=== PATIENT | male | born 1985 | race Caucasian/White ===

== ENCOUNTER 2021-09-23 10:40 | Observation (INO) | payer SELFPAY ==
[2021-09-23 10:52] VITALS: BP 128/87; PULSE 87; RESP 18; TEMP 36.3; O2SAT 98
--- NOTE | 2021-09-23 12:30 | DI.CT_ITS ---
Exam(s) CT ABDOMEN PELVIS W EXAM: CT ABDOMEN PELVIS W CLINICAL HISTORY: LLQ pain, diarrhea. TECHNIQUE: Imaging Protocol: Axial computed tomography images with coronal and sagittal reformatted images were created and reviewed CONTRAST MATERIAL: Intravenous: Omnipaque 100cc Oral: None COMPARISON: No exams were available for comparison FINDINGS: VISUALIZED LUNG BASES: Mild increased markings. No pleural effusions.. ABDOMEN: There is a small amount of ascites in the dependent aspect of pelvis. No ascites in the upper abdome n. GI: There is a distal small bowel obstruction pattern with proximal mid small bowel loops dilated up to 3.5 cm diameter. No pneumatosis or perforation and the colon is not collapsed. The most distal s mall bowel loops are collapsed at the terminal ileum level. No obvious mass in the region of the tra nsition point in the right lower quadrant. No intussusception. Colon is not collapsed LIVER: There are no focal hepatic lesions evident . GALLBLADDER/BILIARY: No obvious gallbladder pathology. CBD is not dilated. PANCREAS: No evidence of pancreatic mass nor dilatation of the pancreatic duct. SPLEEN: Spleen is not enlarged. No obvious intrasplenic lesions. Splenic and portal veins are paten t. ADRENALS: There are no significant adrenal masses. KIDNEYS:No cysts evident. No solid renal masses. No calculi nor hydronephrosis.. ABDOMINAL AORTA: Abdominal aorta is not enlarged. LYMPH NODES:There is no retroperitoneal nor paraaortic adenopathy. ABDOMINAL WALL: No evidence of significant anterior abdominal wall nor inguinal hernia. PELVIS: GI: No evidence of appendicitis.No evidence of sigmoid diverticulitis. LYMPH NODES: There is no intrapelvic nor inguinal adenopathy. REPRODUCTIVE: Prostate and seminal vesicles unremarkable. URINARY BLADDER: No calculi nor obvious masses evident OSSEOUS: No significant osseous lesions. IMPRESSION: 1. There is a distal small bowel obstruction pattern, possibly related to adhesions. The colon is no t collapsed at this time. There is a small amount of ascites in the dependent aspect of the pelvis. Surgical consultation is recommended 2. No evidence of appendicitis. No diverticulitis. RADIATION DOSE DELIVERED: 1,072.84mGy.cm Total DLP DATA REPOSITORY: All CT scans at this facility are submitted to the National Radiology Data Registry (NRDR) Dose Index Registry (DIR) with the [employer] (ACR). RADIATION OPTIMIZATION: All CT scans at this facility use at least one of these dose optimization te chniques: automated exposure control; mA and/or kV adjustment per patient size (includes targeted exa ms where dose is matched to clinical indication); or iterative reconstruction.
[2021-09-23] MEDS: MORPHine 10 MG/ML VIAL 4 MG IVP (12:52)
[2021-09-23] MEDS: Normal Saline 1,000 ML 1000 ML IV (12:52)
[2021-09-23] MEDS: Ondansetron 4 MG/2 ML VIAL IVP (12:52)
[2021-09-23 12:56] LABS: Abs Immature Grans 0.08 10^3/uL (0.0-0.06); Absolute Basophil Count 0.05 10^3/uL (0.0-0.2); Absolute Eosinophil Count 0.11 10^3/uL (0.0-0.7); Absolute Lymphocyte Count 1.25 10^3/uL (1.2-3.4); Absolute Monocyte Count 1.12 10^3/uL (0.1-0.8); Basophils % 0.5; Eosinophils % 1.1; HCT 48.9 % (40.0-50.0); HGB 16.4 g/dL (13.5-17.5); Immature Grans % 0.8; Lymphocytes % 12.5; MCH 28.2 pg (27.0-33.0); MCHC 33.5 % (32.0-36.0); MPV 9.5 fL (8.0-11.0); Monocytes % 11.2; Neutrophils % 73.9; Nucleated RBC 0 %; Platelet Count 247 10^3/uL (130-400); RBC 5.82 10^6/uL (4.36-5.78); RDW 13.2 % (11.8-14.1); RDW-SD 40.6 fL; WBC 10.01 10^3/uL (4.4-10.8)
[2021-09-23 13:10] LABS: ALT 74 U/L (16-63); AST 36 U/L (15-37); Alkaline Phosphatase 94 U/L (46-116); Anion Gap 8.8 mmol/L (3-11); BUN 20 mg/dL (7-18); Bilirubin, Total 0.8 mg/dL (0.2-1.0); CO2 26.2 mmol/L (21.0-32.0); CREATININE 1.2 mg/dL (0.70-1.30); Calcium 8.9 mg/dL (8.5-10.1); Chloride 101 mmol/L (98-107); Glucose 107 mg/dL (74-106); Lipase 20 U/L (73-393); Magnesium 2.2 mg/dL (1.8-2.4); Potassium 3.8 mmol/L (3.5-5.1); Sodium 136 mmol/L (136-145); Total Protein 8.3 g/dL (6.4-8.2)
[2021-09-23] MEDS: Omnipaque 350 MG/ML 100 ML BTL IJ (13:40)
[2021-09-23] MEDS: Normal Saline Flush 10 ML SYR IVP ×2 (13:42→16:58)
--- NOTE | 2021-09-23 14:19 | ED.GENADUL_ITS ---
Discharge Plan Disposition Patient Disposition: [facility] INPATIENT Condition: Fair Discharge Details Clinical Impression: Ileus Admit Date/Time: 09/23/21 14:52 Admit Provider: Afshan Quick Attending Provider: Afshan Quick Primary Care Provider: None,None ED Provider: Diego Waite Discharge Data Discharge Date/Time-TO BE ENTERED AT DEPARTURE: 09/23/21 15:52 Medical Decision Making Patient presenting to the emergency department for chief complaint of abdominal pain and diarrhea for the past 3 days. Thursday evening patient had dinner and started having some belly pain and diarrhea. Others in the home had some slight nausea and diarrhea that is all resolved but his pain has continued and worsened. Patient states watery diarrhea with no blood or mucus noted. Patient denies fever chills or other symptoms. Physical exam shows diffuse abdominal tenderness with hyperactive bowel sounds otherwise unremarkable exam. Plan on doing stool specimen if able to otherwise screening labs and the imaging. Will give patient IV hydration pending results. Review of labs shows nondiagnostic CBC with no evident of leukocytosis or left shift, slightly elevated BUN and ALT but no transaminase noted, lipase is normal. Radiologist report possible partial small bowel obstruction. Requested general surgery consultation. Spoke to Dr. Quick general surgery. After discussion feel like patient more has ileus than small bowel obstruction but plan for observation admission. Patient does state some improvement after hydration pain meds and nausea meds. Imaging Data Radiologic Study: Imaging: CT Scan Radiologist's impression: IMPRESSION: 1. There is a distal small bowel obstruction pattern, possibly related to adhesions. The colon is not collapsed at this time. There is a small amount of ascites in the dependent aspect of the pelvis. Surgical consultation is recommended 2. No evidence of appendicitis. No diverticulitis HPI General Mode of arrival: ambulatory . Date/Time Provider Initiated Documentation: 09/23/21 10:53 . Limitations to Documentation: no limitations . Information obtained by: patient, family and RN notes reviewed . History of Present Illness 36 year old M presents to the emergency department with the chief complaint of Abdominal pain, diarrhea, described as moderate, with intensity rated at 8. Quality is described as aching and sharp, and is localized to the abdomen. Patient reports no radiation. Patient started experiencing this day(s) (3) and it has been constant. improves with No relieving factors improve symptom(s), Eating worsens symptoms . Patient notes no other symptoms.. Patient did receive the following treatments prior to arrival, none Related Data Home Medications Medication Instructions Recorded Confirmed ondansetron HCl 4 mg tablet 4 mg PO Q6H PRN #6 tab 09/24/21 Previous Rx's Medication Instructions Recorded ondansetron HCl 4 mg tablet 4 mg PO Q6H PRN #6 tab 09/24/21 Allergies Allergy/AdvReac Type Severity Reaction Status Date / Time No Known Allergies Allergy Unverified 09/23/21 15:46 General Stated Complaint: Abd Prob JIE: 3 Review of Systems Constitutional Constitutional: Denies chills, Denies fever(s) and Reports poor appetite Cardiovascular Cardiovascular: Denies chest pain and Denies dyspnea Respiratory Respiratory: Denies cough and Denies dyspnea Gastrointestinal Gastrointestinal: Reports as per HPI, Reports abdominal pain, Denies melena, Denies hematochezia, Denies change in bowel habits, Denies constipation, Reports excessive flatus, Reports early satiety, Reports diarrhea, Denies nausea and Denies vomiting Genitourinary Genitourinary: Denies hematuria, Denies difficulty urinating, Denies urinary hesitancy, Denies urinary incontinence and Denies urinary urgency Integumentary/Breasts Skin/Breast: Denies rash [facility] Social History Smoking/Tobacco Use Status: Never Smoking risk assessment performed?: Yes Alcohol Intake: never Substance use type: does not use Do you feel safe at home: Yes Do you feel safe in your relationship?: Yes Exam Const General: cooperative Orientation: alert, awake and oriented x3 Resp Effort & Inspection: normal respiratory effort and able to speak in complete sentences Auscultation: clear to auscultation bilaterally Cardio Rate: regular rate Rhythm: regular rhythm Heart Sounds: S1 normal and S2 normal GI Inspection: normal to inspection Palpation: soft, no hepatosplenomegaly, not firm, no guarding, no masses, no pulsatile masses, not rigid, no splenomegaly and tender (Diffuse tenderness with slightly more in left upper quadrant) Auscultation: hyperactive bowel sounds Back/Spine/Pelvis Back: no CVA tenderness Neuro General: patient alert, patient awake, patient oriented x3, gait normal and moves all extremities Course Vital Signs Vital signs: Vital Signs Temperature 36.3 C L 09/23/21 10:52 Pulse 87 09/23/21 10:52 Respiratory Rate 18 09/23/21 10:52 Blood Pressure 128/87 09/23/21 10:52 Pulse Oximetry 98 09/23/21 10:52 Temperature 36.3 C L 09/23/21 10:52 Temperature Source Tympanic 09/23/21 10:52 Pulse 87 09/23/21 10:52 Respiratory Rate 18 09/23/21 10:52 Respiratory Effort Non-Labored 09/23/21 12:58 Blood Pressure 128/87 09/23/21 10:52 Blood Pressure Position Sitting 09/23/21 10:52 Pulse Oximetry 98 09/23/21 10:52 Oxygen Delivery Method Room Air 09/23/21 10:52 Oxygen Flow Rate 0 09/23/21 10:52 Pain Level 8 09/23/21 12:58 Lab/Test Results Lab/Test Results: Laboratory Tests Range/Units 09/23/21 09/23/21 12:44 12:44 WBC (4.4-10.8) 10^3/uL 10.01 RBC (4.36-5.78) 10^6/uL 5.82 H Hgb (13.5-17.5) g/dL 16.4 Hct (40.0-50.0) % 48.9 MCV (80-95) fL 84.0 MCH (27.0-33.0) pg 28.2 MCHC (32.0-36.0) % 33.5 RDW (11.8-14.1) % 13.2 Plt Count (130-400) 10^3/uL 247 MPV (8.0-11.0) fL 9.5 Immature Gran % 0.8 Neutrophils % 73.9 Lymphocytes % 12.5 Monocytes % 11.2 Eosinophils % 1.1 Basophils % 0.5 Nucleated RBC % % 0 Absolute Neutrophils (1.2-6.7) 10^3/uL 7.40 H Absolute Lymphocytes (1.2-3.4) 10^3/uL 1.25 Absolute Monocytes (0.1-0.8) 10^3/uL 1.12 H Absolute Eosinophils (0.0-0.7) 10^3/uL 0.11 Absolute Basophils (0.0-0.2) 10^3/uL 0.05 Sodium (136-145) mmol/L 136 Potassium (3.5-5.1) mmol/L 3.8 Chloride (98-107) mmol/L 101 Carbon Dioxide (21.0-32.0) mmol/L 26.2 Anion Gap (3-11) mmol/L 8.8 BUN (7-18) mg/dL 20 H Creatinine (0.70-1.30) mg/dL 1.2 Estimated GFR/1.73 m2 (mL/min/1.73m2) >= 60.00 Glucose (74-106) mg/dL 107 H Calcium (8.5-10.1) mg/dL 8.9 Magnesium (1.8-2.4) mg/dL 2.2 Total Bilirubin (0.2-1.0) mg/dL 0.8 AST (15-37) U/L 36 ALT (16-63) U/L 74 H Alkaline Phosphatase (46-116) U/L 94 Total Protein (6.4-8.2) g/dL 8.3 H Albumin (3.4-5.0) g/dL 4.0 Lipase (73-393) U/L 20
--- NOTE | 2021-09-23 15:22 | W.PM.HP.N ---
Date of service: 09/23/21 Time of Service: 15:25 Assessment and Plan Assessment and plan (1) Ileus: Status: Acute Assessment and plan: Patient with abdominal pain, increased flatus and diarrhea x [address] scan suggested Ileus vs. SBO. Patient will be admitted for observation for pain control (toradol and Morphine ordered), IV fluids and bowel rest. Strongly encouraged ambulation and activity OOB as tolerated. Pulmonary toilet NPO, ice chips only GI prophylaxis History of Present Illness Narrative: 36 y/o male presented to the ER with complaints of abdominal pain, increased flatus and diarrhea x 3 days. He states that this pain is persistent, however does improve with passing flatus. Denies bloody or black tarry stools. He reports a family history of Chrons disease. Denies ever having a Colonoscopy. He does not take any medications regularly. He denies any use of cigarettes, tobacco, ETOH, marijuana, other recreational or illegal drugs. He state the only surgery he has ever had was an excision of a pilonidal cyst. PFSH All Active Problems Ileus (Acute) Social History Smoking/Tobacco Use Status: Never Smoking risk assessment performed?: Yes Alcohol Intake: never Substance use type: does not use Do you feel safe at home: Yes Do you feel safe in your relationship?: Yes Meds Allergies and Home Medications Allergies Allergy/AdvReac Type Severity Reaction Status Date / Time No Known Allergies Allergy Unverified 09/23/21 15:46 Home Medications Medication Instructions Recorded Confirmed Type Unknown [No Known Home Meds] 09/23/21 09/23/21 History Exam Const General: healthy appearing, comfortable and in distress mild Orientation: alert and oriented x3 Resp Effort & Inspection: normal respiratory effort, no audible wheezes and no cough GI Inspection: normal to inspection Palpation: soft, no guarding and tender Auscultation: hyperactive bowel sounds Results Labs Result diagrams: 09/23/21 12:44 09/23/21 12:44 Labs: Laboratory Results - last 24 hr 09/23/21 09/23/21 12:44 12:44 WBC 10.01 RBC 5.82 H Hgb 16.4 Hct 48.9 MCV 84.0 MCH 28.2 MCHC 33.5 RDW 13.2 Plt Count 247 MPV 9.5 Immature Gran % 0.8 Neutrophils % 73.9 Lymphocytes % 12.5 Monocytes % 11.2 Eosinophils % 1.1 Basophils % 0.5 Nucleated RBC % 0 Absolute Neutrophils 7.40 H Absolute Lymphocytes 1.25 Absolute Monocytes 1.12 H Absolute Eosinophils 0.11 Absolute Basophils 0.05 Sodium 136 Potassium 3.8 Chloride 101 Carbon Dioxide 26.2 Anion Gap 8.8 BUN 20 H Creatinine 1.2 Estimated GFR/1.73 m2 >= 60.00 Glucose 107 H Calcium 8.9 Magnesium 2.2 Total Bilirubin 0.8 AST 36 ALT 74 H Alkaline Phosphatase 94 Total Protein 8.3 H Albumin 4.0 Lipase 20 Last Vital Signs Temp 36.3 C L 09/23/21 10:52 Pulse 87 09/23/21 10:52 Resp 18 09/23/21 10:52 BP 128/87 09/23/21 10:52 Pulse Ox 98 09/23/21 10:52
[2021-09-23 15:30] LABS: Source Nasal/Nares
[2021-09-23 15:50] VITALS: BP 113/69; PULSE 79; TEMP 36.8; O2SAT 97
[2021-09-23] MEDS: Lactated Ringers 1,000 ML 125 ML IV ×2 (16:10→23:48)
[2021-09-23 16:11] VITALS: BP 124/89; PULSE 85; RESP 18; TEMP 36.9; O2SAT 95
[2021-09-23 16:12] LABS: Bilirubin Negative (Negative); Blood Moderate (Negative); Clarity Clear (Clear); Glucose Negative (Negative); Ketones Negative (Negative); Leukocyte Esterase Negative (Negative); Nitrite Negative (Negative); Specific Gravity 1.025 (1.005-1.025); Urobilinogen 0.2 EU/dL (Up TO 0.2)
[2021-09-23 16:22] LABS: COVID-19 PCR Negative (Negative)
[2021-09-23 16:28] LABS: Bacteria Negative HPF (Negative); Crystals Negative HPF (Negative); Epithelial Cells Many HPF (Negative); Mucus Negative (Negative); WBC Negative HPF (0-5)
[2021-09-23 16:29] LABS: C & S Indicated? No
[2021-09-23] MEDS: Pantoprazole 40 MG VIAL IVP (16:58)
[2021-09-23 23:36] VITALS: BP 125/75; PULSE 85; RESP 18; TEMP 36.7; O2SAT 97
[2021-09-24] MEDS: Lactated Ringers 1,000 ML 125 ML IV ×2 (06:25→15:07)
[2021-09-24 07:15] VITALS: BP 98/50; PULSE 60; RESP 16; TEMP 36.5; O2SAT 93
--- NOTE | 2021-09-24 08:23 | PGE_ITS ---
Date of Service Date of service: 09/24/21 Time of Service: 08:24 Assessment and Plan Assessment and plan (1) Ileus: Status: Acute Assessment and plan: Patient's abdominal pain has improved. (+) BS, (+) BM liquid BM late last night and he continues to pass flatus No nausea or vomiting He has been independent with ambualtion and activity OOB Will progress to clear liquid diet this morning. -pt tolerated clears at lunch -no pain -he was able to move bowels Most likely this is gastroenteritis. He will be discharged to home Rx for Zofran for nausea push fluids and brat diet for the next 1 to 2 days follow-up with PCP Patient understood all and discharged in stable satisfaction to home Exam Narrative Exam Narrative: Patient reports his pain is significantly improved this morning. He has been tolerating the ice chips. He had a liquid BM late last night and has continued to pass flatus. Denies any fevers, chills or night sweats. Resp Effort & Inspection: normal respiratory effort, no audible wheezes and no cough GI Inspection: normal to inspection Palpation: soft, no guarding and nontender Objective Last Vital Signs Temp 36.5 C 09/24/21 07:15 Pulse 60 09/24/21 07:15 Resp 16 09/24/21 07:15 BP 98/50 L 09/24/21 07:15 Pulse Ox 93 09/24/21 07:15 Laboratory Results - last 24 hr 09/23/21 09/23/21 09/23/21 12:44 12:44 15:08 WBC 10.01 RBC 5.82 H Hgb 16.4 Hct 48.9 MCV 84.0 MCH 28.2 MCHC 33.5 RDW 13.2 Plt Count 247 MPV 9.5 Immature Gran % 0.8 Neutrophils % 73.9 Lymphocytes % 12.5 Monocytes % 11.2 Eosinophils % 1.1 Basophils % 0.5 Nucleated RBC % 0 Absolute Neutrophils 7.40 H Absolute Lymphocytes 1.25 Absolute Monocytes 1.12 H Absolute Eosinophils 0.11 Absolute Basophils 0.05 Sodium 136 Potassium 3.8 Chloride 101 Carbon Dioxide 26.2 Anion Gap 8.8 BUN 20 H Creatinine 1.2 Estimated GFR/1.73 m2 >= 60.00 Glucose 107 H Calcium 8.9 Magnesium 2.2 Total Bilirubin 0.8 AST 36 ALT 74 H Alkaline Phosphatase 94 Total Protein 8.3 H Albumin 4.0 Lipase 20 Urine Color Urine Clarity Urine pH Ur Specific [place] Urine Protein Urine Ketones Urine Blood Urine Nitrite Urine Bilirubin Urine Urobilinogen Ur Leukocyte Esterase Urine RBC Urine WBC Ur Epithelial Cells Urine Crystals Urine Bacteria Urine Mucus Ur Culture Indicated? Urine Glucose COVID-19 Source Nasal/Nares SARS-CoV-2 (PCR) Negative 09/23/21 15:36 WBC RBC Hgb Hct MCV MCH MCHC RDW Plt Count MPV Immature Gran % Neutrophils % Lymphocytes % Monocytes % Eosinophils % Basophils % Nucleated RBC % Absolute Neutrophils Absolute Lymphocytes Absolute Monocytes Absolute Eosinophils Absolute Basophils Sodium Potassium Chloride Carbon Dioxide Anion Gap BUN Creatinine Estimated GFR/1.73 m2 Glucose Calcium Magnesium Total Bilirubin AST ALT Alkaline Phosphatase Total Protein Albumin Lipase Urine Color Yellow Urine Clarity Clear Urine pH 6.0 Ur Specific [place] 1.025 Urine Protein Negative Urine Ketones Negative Urine Blood Moderate H Urine Nitrite Negative Urine Bilirubin Negative Urine Urobilinogen 0.2 Ur Leukocyte Esterase Negative Urine RBC 3-5 H Urine WBC Negative Ur Epithelial Cells Many Urine Crystals Negative Urine Bacteria Negative Urine Mucus Negative Ur Culture Indicated? No Urine Glucose Negative COVID-19 Source SARS-CoV-2 (PCR)
--- NOTE | 2021-09-24 09:27 | DI.RAD_ITS ---
Exam(s) XR ABDOMEN FLAT UPRIGHT EXAM: 2D digital imaging was performed. CLINICAL HISTORY: Follow up on ileus. COMPARISON: CT CT ABDOMEN PELVIS W from 09/23/2021 TECHNIQUE: Supine and upright views of the abdomen was performed. Three images were obtained. FINDINGS: LUNG BASES: Clear. BOWEL GAS PATTERN: The bowel gas pattern is significantly improved compared to the prior examination with a few mildly dilated loops of small bowel in the central abdomen. The colon is of normal calibe r. FREE AIR: None. CALCIFICATIONS: No radiopaque calcifications. OSSEOUS STRUCTURES: Normal for age. OTHER FINDINGS: None. IMPRESSION: Improved appearance of the bowel. There are a few persistent dilated loops of small bowel in the rupal tral abdomen. DATA REPOSITORY: RADIATION DOSE DELIVERED:
--- NOTE | 2021-09-24 15:14 | W.PM.DS.N ---
Date of service: 09/24/21 Time of Service: 15:14 DS: Diagnosis Discharge Diagnosis (1) Ileus: Status: Acute Discharge Plan Disposition Patient Disposition: HOME Condition: Fair Discharge Details Reason For Visit: viral gastroenteritis Admit Date/Time: 09/23/21 14:52 Admit Provider: Afshan Quick Attending Provider: Afshan Quick Primary Care Provider: None,None Hospital Course Hospital Course: see addendum Home Meds and New Rx's Prescriptions: No Action No Known Home Meds 0RF Discharge Instructions Instructions: Diet for Stomach Ulcers and Gastritis (GEN) Additional Instructions: -BRAT/bland diet for 48hrs. -push fluids -zofran for nausea -rest for the next 48hrs -tylenol for fever/muscle aches as needed -F/u PCP -return to ER if continued vomiting/increase in abdominal pain/fever >101 Activity:: see above Equipment/Supplies:: No Equipment Needed Diet:: see above Discharge Orders Discharge Orders: Discharge Order (Routine); Ordered 09/24/21 Ordered By: Aida Goyal DS: Summary Time Spent with Patient providing and/or coordinating discharge services: Less than 30 minutes Status at Discharge Functional status at discharge: independent ambulation Overall status at discharge: patient is progressing back to baseline Mental Status: mental status grossly normal Speech and Movement: speech and movement normal Mood: congruent mood Affect: normal affect Exam Psych Mental Status: mental status grossly normal Speech and Movement: speech and movement normal Mood: congruent mood Affect: normal affect DS: Data Vitals/I&O Vitals and I&O: Vital Signs Temperature 36.5 C 09/24/21 07:15 Temperature Source Tympanic 09/24/21 07:15 Pulse 60 09/24/21 07:15 Pulse Rhythm Regular 09/24/21 09:10 Respiratory Rate 16 09/24/21 07:15 Respiratory Effort Non-Labored 09/24/21 09:10 Respiratory Depth Normal 09/24/21 09:10 Respiratory Pattern Normal 09/24/21 09:10 Blood Pressure 98/50 L 09/24/21 07:15 Blood Pressure Position Sitting 09/23/21 10:52 Pulse Oximetry 93 09/24/21 07:15 Oxygen Delivery Method Room Air 09/24/21 07:15 Oxygen Flow Rate 0 09/24/21 07:15 Pain Level 0 09/24/21 07:15 Comment 09/24/21 07:15 Intake & Output 09/23/21 09/24/21 09/24/21 23:59 11:59 23:59 Intake Total 195.167 / 1954.167 827.083 / 2307.083 1480 / 2307.083 Output Total 300 / 300 Balance 1654.167 / 1654.167 827.083 / 2307.083 1480 / 2307.083 Weight 81.6 kg Intake: IV 1954.167 / 1954.167 827.083 / 3346.363 2535 / 1827.083 Oral 480 / 480 Output: Stool 300 / 300 Other: Comment voiding independently Stool Size Moderate Small Stool Characteristics Soft Soft Soft Liquid Formed Formed Brown Bloody Data Completed and Pending Labs on day of discharge: Labs from last 24 hours 09/23/21 09/23/21 09/23/21 19:45 19:45 15:36 Urine Color Yellow Urine Clarity Clear Urine pH 6.0 Ur Specific [place] 1.025 Urine Protein Negative Urine Ketones Negative Urine Blood Moderate H Urine Nitrite Negative Urine Bilirubin Negative Urine Urobilinogen 0.2 Ur Leukocyte Esterase Negative Urine RBC 3-5 H Urine WBC Negative Ur Epithelial Cells Many Urine Crystals Negative Urine Bacteria Negative Urine Mucus Negative Ur Culture Indicated? No Urine Glucose Negative Stool Description Pending Stool Campylobacter PCR Pending Stool Salmonella PCR Pending Stool Shigella PCR Pending Stool Ova & Parasites Pending COVID-19 Source SARS-CoV-2 (PCR) Shiga Toxin (PCR) Pending 09/23/21 15:08 Urine Color Urine Clarity Urine pH Ur Specific [place] Urine Protein Urine Ketones Urine Blood Urine Nitrite Urine Bilirubin Urine Urobilinogen Ur Leukocyte Esterase Urine RBC Urine WBC Ur Epithelial Cells Urine Crystals Urine Bacteria Urine Mucus Ur Culture Indicated? Urine Glucose Stool Description Stool Campylobacter PCR Stool Salmonella PCR Stool Shigella PCR Stool Ova & Parasites COVID-19 Source Nasal/Nares SARS-CoV-2 (PCR) Negative Shiga Toxin (PCR) PFSH All Active Problems Ileus (Acute) Social History Smoking/Tobacco Use Status: Never Smoking risk assessment performed?: Yes Alcohol Intake: never Substance use type: does not use Do you feel safe at home: Yes Do you feel safe in your relationship?: Yes
--- NOTE | 2021-09-24 15:27 | W.PM.DS.N ---
DS: Diagnosis Discharge Diagnosis (1) Ileus: Status: Acute Discharge Plan Disposition Patient Disposition: HOME Condition: Fair Discharge Details Reason For Visit: viral gastroenteritis Admit Date/Time: 09/23/21 14:52 Admit Provider: Afshan Quick Attending Provider: Afshan Quick Primary Care Provider: None,None Hospital Course Hospital Course: see addendum Home Meds and New Rx's Prescriptions: New ondansetron HCl 4 mg tablet 4 mg PO Q6H PRN (Reason: nausea and vomiting) Qty: 6 0RF Discharge Instructions Instructions: Diet for Stomach Ulcers and Gastritis (GEN) Additional Instructions: -BRAT/bland diet for 48hrs. -push fluids -zofran for nausea -rest for the next 48hrs -tylenol for fever/muscle aches as needed -F/u PCP -return to ER if continued vomiting/increase in abdominal pain/fever >101 Activity:: see above Equipment/Supplies:: No Equipment Needed Diet:: see above Discharge Orders Discharge Orders: Discharge Order (Routine); Ordered 09/24/21 Ordered By: Aida Goyal DS: Summary Time Spent with Patient providing and/or coordinating discharge services: Less than 30 minutes Status at Discharge Functional status at discharge: independent ambulation Overall status at discharge: patient is back to baseline Mental Status: mental status grossly normal Speech and Movement: speech and movement normal Mood: congruent mood Affect: normal affect Exam Psych Mental Status: mental status grossly normal Speech and Movement: speech and movement normal Mood: congruent mood Affect: normal affect DS: Data Vitals/I&O Vitals and I&O: Vital Signs Temperature 36.5 C 09/24/21 07:15 Temperature Source Tympanic 09/24/21 07:15 Pulse 60 09/24/21 07:15 Pulse Rhythm Regular 09/24/21 09:10 Respiratory Rate 16 09/24/21 07:15 Respiratory Effort Non-Labored 09/24/21 09:10 Respiratory Depth Normal 09/24/21 09:10 Respiratory Pattern Normal 09/24/21 09:10 Blood Pressure 98/50 L 09/24/21 07:15 Blood Pressure Position Sitting 09/23/21 10:52 Pulse Oximetry 93 09/24/21 07:15 Oxygen Delivery Method Room Air 09/24/21 07:15 Oxygen Flow Rate 0 09/24/21 07:15 Pain Level 0 09/24/21 07:15 Comment 09/24/21 07:15 Intake & Output 09/23/21 09/24/21 09/24/21 23:59 11:59 23:59 Intake Total 4.167 / 1954.167 827.083 / 2307.083 1480 / 2307.083 Output Total 300 / 300 Balance 1654.167 / 1654.167 827.083 / 2307.083 1480 / 2307.083 Weight 81.6 kg Intake: IV 1954.167 / 1954.167 827.083 / 4376.421 0925 / 1827.083 Oral 480 / 480 Output: Stool 300 / 300 Other: Comment voiding independently Stool Size Moderate Small Stool Characteristics Soft Soft Soft Liquid Formed Formed Brown Bloody Data Completed and Pending Labs on day of discharge: Labs from last 24 hours 09/23/21 09/23/21 09/23/21 19:45 19:45 15:36 Urine Color Yellow Urine Clarity Clear Urine pH 6.0 Ur Specific Stuart 1.025 Urine Protein Negative Urine Ketones Negative Urine Blood Moderate H Urine Nitrite Negative Urine Bilirubin Negative Urine Urobilinogen 0.2 Ur Leukocyte Esterase Negative Urine RBC 3-5 H Urine WBC Negative Ur Epithelial Cells Many Urine Crystals Negative Urine Bacteria Negative Urine Mucus Negative Ur Culture Indicated? No Urine Glucose Negative Stool Description Pending Stool Campylobacter PCR Pending Stool Salmonella PCR Pending Stool Shigella PCR Pending Stool Ova & Parasites Pending COVID-19 Source SARS-CoV-2 (PCR) Shiga Toxin (PCR) Pending 09/23/21 15:08 Urine Color Urine Clarity Urine pH Ur Specific Stuart Urine Protein Urine Ketones Urine Blood Urine Nitrite Urine Bilirubin Urine Urobilinogen Ur Leukocyte Esterase Urine RBC Urine WBC Ur Epithelial Cells Urine Crystals Urine Bacteria Urine Mucus Ur Culture Indicated? Urine Glucose Stool Description Stool Campylobacter PCR Stool Salmonella PCR Stool Shigella PCR Stool Ova & Parasites COVID-19 Source Nasal/Nares SARS-CoV-2 (PCR) Negative Shiga Toxin (PCR) PFSH All Active Problems Ileus (Acute) Social History Smoking/Tobacco Use Status: Never Smoking risk assessment performed?: Yes Alcohol Intake: never Substance use type: does not use Do you feel safe at home: Yes Do you feel safe in your relationship?: Yes
[2021-09-24] MEDS: Pantoprazole 40 MG VIAL IVP (15:36)
[2021-09-24] MEDS: Normal Saline Flush 10 ML SYR IVP (15:37)
--- NOTE | 2021-09-24 16:08 | CHAPLAIN ---
Diego was resting in bed when I visited. I introduced myself and explained my role. Diego told be about beginning not to feel well at home, and then coming into the hospital. He said he's been on clear liquids for a diet and is hungry as he hasn't eaten much in a few days. I told him I would let his nurse know.
[2021-09-24 20:29] LABS: Campylobacter PCR Negative (Negative); Salmonella PCR Negative (Negative); Shiga Toxin PCR Negative (Negative); Shigella/Enteroinvasive Ecoli Negative (Negative)
== END 2021-09-24 16:40 | disposition home or self-care (01) ==
LOC: ER 15:13 → MS 15:59
PROVIDERS: Admitting Provider Surgery; Emergency Provider Nurse Practitioner Family; Visit Provider Surgery
DX: K56.7 Ileus, unspecified (principal); A08.4 Viral intestinal infection, unspecified; Z20.822 Contact with and (suspected) exposure to COVID-19
CPT/HCPCS: 36415; 80053; 83690; 87505; 87635; 96361; 96374; 96375; 99284; 99285; 74019; 74177; 81003; 81015; 83735; 85025; 87177; G0378; J2270; J2405; J3490